=== PATIENT | female | born 1945 | race Caucasian/White ===

== ENCOUNTER 2018-10-31 10:58 | Observation (INO) | payer OTHER ==
[2018-10-31] MEDS ORDERED: SODIUM CHLORIDE 1,000 ML IV STA (11:22)
[2018-10-31] MEDS ORDERED: CEFTRIAXONE 1,000 MG in DEXTROSE 5%-WATER - 50 ML IVPB ONE (12:05)
--- NOTE | 2018-10-31 12:25 | PDOC ---
History of Present Illness <Elisabet Newman - Last Filed: 10/31/18 12:41> - History of Present Illness Initial Comments: 10/31/18 12:19 The patient is a 72-year-old female, with a past medical history of HTN and cardiac stent x1 on ASA/Plavix, sent to the ED by Dr. Romero with rectal bleeding s/p colonoscopy yesterday. Patient had 6 polyps removed and reports having 3 episodes of heavy bleeding this morning w/o clots. Blood was bright red in color. She is also experiencing lower abdominal pain that is worse on the left side, which Dr. Romero believes is due to the cautery. As per Dr. Romero, the patient was orthostatic in the office this morning and stopped her plavix and aspirin 1 week prior to the surgery. The patient denies any fever, chills, nausea, or vomiting. Denies any dizziness , chest pain or shortness of breath. Denies any urinary symptoms. Allergies: NKA Social History: None reported. Surgical History: Colonoscopy <Chandler Tavarez - Last Filed: 10/31/18 16:05> - General Chief Complaint: Pain, Acute Stated Complaint: ABD PAIN, RECTAL BLEEDING Time Seen by Provider: 10/31/18 11:38 Past History <Elisabet Newman - Last Filed: 10/31/18 12:41> - Past Medical History COPD: No HTN: Yes - Suicide/Smoking/Psychosocial Hx Smoking History: Never smoked Have you smoked in the past 12 months: No Information on smoking cessation initiated: No Hx Alcohol Use: No Drug/Substance Use Hx: No <Chandler Tavarez - Last Filed: 10/31/18 16:05> - Past Medical History Allergies/Adverse Reactions: Allergies Allergy/AdvReac Type Severity Reaction Status Date / Time No Known Allergies Allergy Verified 10/31/18 11:11 Review of Systems - Review of Systems Comments:: 10/31/18 12:20 GENERAL/CONSTITUTIONAL: No fever or chills. No weakness. HEAD, EYES, EARS, NOSE AND THROAT: No change in vision. No ear pain or discharge. No sore throat. GASTROINTESTINAL: (+)Abdominal pain. No nausea, vomiting, diarrhea or constipation. GENITOURINARY: (+)Rectal bleeding. No dysuria, frequency, or change in urination. CARDIOVASCULAR: No chest pain or shortness of breath. RESPIRATORY: No cough, wheezing, or hemoptysis. MUSCULOSKELETAL: No joint or muscle swelling or pain. No neck or back pain. SKIN: No rash NEUROLOGIC: No headache, vertigo, loss of consciousness, or change in strength/ sensation. ENDOCRINE: No increased thirst. No abnormal weight change. HEMATOLOGIC/LYMPHATIC: No anemia, easy bleeding, or history of blood clots. ALLERGIC/IMMUNOLOGIC: No hives or skin allergy. <CorbyYomna - Last Filed: 10/31/18 16:05> *Physical Exam - Vital Signs Last Vital Signs Temp Pulse Resp BP Pulse Ox 98.2 F 66 18 96/55 L 99 10/31/18 11:11 10/31/18 12:21 10/31/18 12:21 10/31/18 12:21 10/31/18 12:21 <Elisabet Newman - Last Filed: 10/31/18 12:41> - Vital Signs Last Vital Signs Temp Pulse Resp BP Pulse Ox 98.2 F 80 20 91/43 L 96 10/31/18 11:11 10/31/18 11:11 10/31/18 11:11 10/31/18 11:11 10/31/18 11:11 - Physical Exam Comments: 10/31/18 12:20 GENERAL: Awake, alert, and fully oriented, in no acute distress. Pale in appearance EYES: PERRLA, EOMI, sclera anicteric, conjunctiva clear ENT: Hearing grossly normal, nares patent, oropharynx clear without exudates. Moist mucosa NECK: Normal ROM, supple, no lymphadenopathy, JVD, or masses LUNGS: Breath sounds equal, clear to auscultation bilaterally. No wheezes, and no crackles HEART: Regular rate and rhythm, normal S1 and S2, no murmurs, rubs or gallops ABDOMEN: Soft, nontender, normoactive bowel sounds. No guarding, no rebound. No masses : +BRB in rectal vault, no active bleeding, no ext hemorrhoids EXTREMITIES: Normal range of motion, no edema. No cords, erythema, or tenderness NEUROLOGICAL: Normal speech, cranial nerves intact, equal strength and sensation b/l SKIN: Warm, Dry, normal turgor, no rashes or lesions noted. <NassefYomna - Last Filed: 10/31/18 16:05> Moderate Sedation - Procedure Monitoring Vital Signs: Procedure Monitoring Vital Signs Temperature 98.2 F 10/31/18 11:11 Pulse Rate 66 10/31/18 12:21 Respiratory Rate 18 10/31/18 12:21 Blood Pressure 96/55 L 10/31/18 12:21 O2 Sat by Pulse Oximetry (%) 99 10/31/18 12:21 <Elisabet Newman - Last Filed: 10/31/18 12:41> - Procedure Monitoring Vital Signs: Procedure Monitoring Vital Signs Temperature 98.2 F 10/31/18 11:11 Pulse Rate 80 10/31/18 11:11 Respiratory Rate 20 10/31/18 11:11 Blood Pressure 91/43 L 10/31/18 11:11 O2 Sat by Pulse Oximetry (%) 96 10/31/18 11:11 <Chandler Tavarez - Last Filed: 10/31/18 16:05> Heart Score/ECG Review #1 10/31/18 12:36 Twelve-lead EKG was performed and reviewed by me. Normal sinus rhythm, rate 62. Normal axis. No ST elevations. T wave inversions in V2 to V4. No previous EKGs to compare. <Chandler Tavarez - Last Filed: 10/31/18 16:05> ED Treatment Course - LABORATORY CBC & Chemistry Diagram: 10/31/18 11:55 10/31/18 11:55 - ADDITIONAL ORDERS Additional order review: Laboratory Results 10/31/18 11:55 Crossmatch See Detail 10/31/18 11:55 RBC 3.68 MCV 95.8 MCHC 35.4 RDW 12.4 MPV 8.0 Neutrophils % 66.5 Lymphocytes % 23.5 Monocytes % 6.3 Eosinophils % 3.1 Basophils % 0.6 - RADIOLOGY Radiology Studies Ordered: 10/31/18 12:41 Chest X-Ray was reviewed by Dr. Tavarez and over-read by Radiology. Impression: A single AP view the chest reveals a weak inspiration with prominent mediastinum with sclerotic knob. An acute chest process is not seen. The bones and soft tissues are intact. <Elisabet Newman - Last Filed: 10/31/18 12:41> - LABORATORY CBC & Chemistry Diagram: 10/31/18 11:55 02/06/19 11:55 - RADIOLOGY Radiology Studies Ordered: Category Date Time Status CHEST X-RAY PORTABLE* [RAD] Stat Radiology 10/31/18 11:44 Completed <Chandler Tavarez - Last Filed: 10/31/18 16:05> Medical Decision Making - Medical Decision Making 10/31/18 12:37 72yo F with hx HTN, CAD s/p stent 6 years ago presents to the ED with BRBPR after 6 polyps removed yesterday. Vitals significant with hypotension to 90s/ 40s. Exam with pale appearing pt, mild LLQ abd pain, and BRB in rectal vault. Concern for post colonsocopy bleeding, will plan for blood transfusion given reported blood loss, and hypotension. Dr. Romero also requests ceftriaxone/ flagyl in case of perf and CTAP w/o IV or PO contrast to r/o pneumoperitoneum. Once vitals more stable, will order imaging. Anticipate admission. 10/31/18 16:01 Labs wnl CTAP with no pneumoperitoneum, or acute findings BP to 110/64 at this time Case discussed with Dr. Corrales, pt admitted for further mgmt Rpt cbc pending Case discussed in detail with admitting physician including history, physical exam and ancillary studies. Admitting physician has assumed care for the patient, will follow all pending diagnostics and will complete the evaluation and treatment. 10/31/18 16:[address] Romero of the above, agrees with plan to transfuse and admit. <Chandler Tavarez - Last Filed: 10/31/18 16:05> *DC/Admit/Observation/Transfer - Attestations Scribe Attestion: 10/31/18 12:41 Documentation prepared by Elisabet Newman, acting as medical delivery driver for Chandler Tavarez MD. <Elisabet Newman - Last Filed: 10/31/18 12:41> - Discharge Dispostion Decision to Admit order: Yes - Attestations Physician Attestion: 10/31/18 16:03 I, Dr. Chandler Tavarez MD, attest that this document has been prepared under my direction and personally reviewed by me in its entirety. I further attest, that it accurately reflects all work, treatment, procedures and medical decision -making performed by me. <Chandler Tavarez - Last Filed: 10/31/18 16:05> Diagnosis at time of Disposition: BRBPR (bright red blood per rectum), Abdominal pain, Hypotension - Discharge Dispostion Condition at time of disposition: Stable
[2018-10-31] MEDS ORDERED: CEFTRIAXONE 1 GM/50 ML BAG ONE (12:26)
[2018-10-31 12:29] LABS: BASO % 0.6 % (0-2.0); EOS % 3.1 % (0-4.5); HEMATOCRIT 35.2 % (32.4-45.2); HEMOGLOBIN 12.5 GM/dL (10.7-15.3); LYMPH % 23.5 % (8-40); MCH 33.9 pg (25.7-33.7); MCHC 35.4 g/dl (32.0-36.0); MEAN CELL VOLUME 95.8 fl (80-96); MONO % 6.3 % (3.8-10.2); NEUT % 66.5 % (42.8-82.8); PLATELET COUNT 238 K/MM3 (134-434); RBC 3.68 M/mm3 (3.60-5.2); RDW 12.4 % (11.6-15.6); WHITE BLOOD COUNT 7.2 K/mm3 (4.0-10.0)
[2018-10-31 12:41] LABS: INR 0.97 (0.83-1.09); PROTHROMBIN TIME (PATIENT) 11.5 SEC (9.7-13.0)
[2018-10-31 12:50] LABS: ALK PHOS 68 U/L (45-117); ANION GAP 7 MMOL/L (8-16); BILIRUBIN,TOTAL 0.5 mg/dL (0.2-1); BLOOD UREA NITROGEN 24 mg/dL (7-18); CALCIUM 8.7 mg/dL (8.5-10.1); CHLORIDE 96 mmol/L (98-107); CO2 29 mmol/L (21-32); CREATININE 1.3 mg/dL (0.55-1.3); GLUCOSE,RANDOM 91 mg/dL (74-106); SGOT/AST 19 U/L (15-37); SGPT/ALT 26 U/L (13-61); SODIUM 132 mmol/L (136-145); TOT PROT 7.4 g/dl (6.4-8.2)
[2018-10-31 17:34] LABS: URINE APPEARANCE CLEAR; URINE BILIRUBIN NEGATIVE (<2.0 mg/dL); URINE COLOR LTYELLOW; URINE GLUCOSE (UA) NEGATIVE (NEGATIVE); URINE KETONE NEGATIVE (NEGATIVE); URINE LEUK ESTERASE NEGATIVE (NEGATIVE); URINE NITRITE NEGATIVE (NEGATIVE); URINE PROTEIN NEGATIVE (NEGATIVE); URINE UROBILINOGEN NEGATIVE mg/dL (0.2-1.0)
[2018-10-31 17:44] LABS: EPI CELLS RARE /HPF (FEW); URINE HYALINE CAST 1 /lpf; URINE MUCUS RARE
[2018-10-31 20:17] VITALS: BMI 27.3
--- NOTE | 2018-10-31 20:45 | HP ---
Admitting History and Physical - Primary Care Physician PCP: Gaurav Corrales - Admission History of Present Illness: 72-year-old female, with a past medical history of HTN and cardiac stent x1 on ASA/Plavix, sent to the ED by Dr. Gonzalez with rectal bleeding s/p colonoscopy yesterday. Patient had 6 polyps removed and reports having 3 episodes of heavy bleeding this morning w/o clots. Blood was bright red in color. She is also experiencing lower abdominal pain that is worse on the left side, which Dr. Gonzalez believes is due to the cautery. As per Dr. Gonzalez, the patient was orthostatic in the office this morning and stopped her plavix and aspirin 1 week prior to the surgery. - Past Medical History Cardiovascular: Yes: HTN ...: No - Smoking History Smoking history: Never smoked Have you smoked in the past 12 months: No - Alcohol/Substance Use Hx Alcohol Use: No Home Medications - Allergies Allergies/Adverse Reactions: Allergies Allergy/AdvReac Type Severity Reaction Status Date / Time No Known Allergies Allergy Verified 10/31/18 11:11 - Home Medications Home Medications: Ambulatory Orders ASA - 81 mg PO DAILY 10/31/18 Physical Examination Vital Signs: Vital Signs Temperature 97.9 F 10/31/18 20:12 Pulse Rate 62 10/31/18 20:12 Respiratory Rate 20 10/31/18 20:12 Blood Pressure 124/62 10/31/18 20:12 O2 Sat by Pulse Oximetry (%) 99 10/31/18 18:48 Constitutional: Yes: No Distress HENT: Yes: Atraumatic Neck: Yes: Supple Cardiovascular: Yes: Regular Rate and Rhythm Respiratory: Yes: CTA Bilaterally Gastrointestinal: Yes: Normal Bowel Sounds Extremities: Yes: WNL Edema: No Neurological: Yes: Alert, Oriented Labs: CBC, BMP 10/31/18 11:55 10/31/18 11:55 Imaging - Results Cat Scan: Report Reviewed Problem List - Problems (1) Abdominal pain Assessment/Plan: on clear liquid diet Code(s): R10.9 - UNSPECIFIED ABDOMINAL PAIN (2) BRBPR (bright red blood per rectum) Assessment/Plan: no more blood per rectum during the day uptil now dr gonzalez to see patient Code(s): K62.5 - HEMORRHAGE OF ANUS AND RECTUM Assessment/Plan Laboratory Tests 10/31/18 10/31/18 10/31/18 11:55 11:55 11:55 WBC 7.2 RBC 3.68 Hgb 12.5 Hct 35.2 MCV 95.8 MCH 33.9 H MCHC 35.4 RDW 12.4 Plt Count 238 MPV 8.0 Absolute Neuts (auto) 4.8 Neutrophils % 66.5 Lymphocytes % 23.5 Monocytes % 6.3 Eosinophils % 3.1 Basophils % 0.6 Nucleated RBC % 0 PT with INR 11.50 INR 0.97 PTT (Actin FS) 28.0 Sodium 132 L Potassium 4.0 Chloride 96 L Carbon Dioxide 29 Anion Gap 7 L BUN 24 H Creatinine 1.3 Creat Clearance w eGFR 40.26 Random Glucose 91 Calcium 8.7 Total Bilirubin 0.5 AST 19 ALT 26 Alkaline Phosphatase 68 Total Protein 7.4 Albumin 4.0 Urine Color Urine Appearance Urine pH Ur Specific [place] Urine Protein Urine Glucose (UA) Urine Ketones Urine Blood Urine Nitrite Urine Bilirubin Urine Urobilinogen Ur Leukocyte Esterase Urine WBC (Auto) Urine RBC (Auto) Ur Epithelial Cells Hyaline Casts Urine Mucus Stool Occult Blood Blood Type Antibody Screen Crossmatch 10/31/18 10/31/18 10/31/18 11:55 12:28 14:51 WBC RBC Hgb Hct MCV MCH MCHC RDW Plt Count MPV Absolute Neuts (auto) Neutrophils % Lymphocytes % Monocytes % Eosinophils % Basophils % Nucleated RBC % PT with INR INR PTT (Actin FS) Sodium Potassium Chloride Carbon Dioxide Anion Gap BUN Creatinine Creat Clearance w eGFR Random Glucose Calcium Total Bilirubin AST ALT Alkaline Phosphatase Total Protein Albumin Urine Color Urine Appearance Urine pH Ur Specific [place] Urine Protein Urine Glucose (UA) Urine Ketones Urine Blood Urine Nitrite Urine Bilirubin Urine Urobilinogen Ur Leukocyte Esterase Urine WBC (Auto) Urine RBC (Auto) Ur Epithelial Cells Hyaline Casts Urine Mucus Stool Occult Blood Positive Blood Type O POSITIVE O POSITIVE Antibody Screen Negative Negative Crossmatch See Detail 10/31/18 16:53 WBC RBC Hgb Hct MCV MCH MCHC RDW Plt Count MPV Absolute Neuts (auto) Neutrophils % Lymphocytes % Monocytes % Eosinophils % Basophils % Nucleated RBC % PT with INR INR PTT (Actin FS) Sodium Potassium Chloride Carbon Dioxide Anion Gap BUN Creatinine Creat Clearance w eGFR Random Glucose Calcium Total Bilirubin AST ALT Alkaline Phosphatase Total Protein Albumin Urine Color Ltyellow Urine Appearance Clear Urine pH 6.0 Ur Specific [place] 1.008 L Urine Protein Negative Urine Glucose (UA) Negative Urine Ketones Negative Urine Blood 1+ H Urine Nitrite Negative Urine Bilirubin Negative Urine Urobilinogen Negative Ur Leukocyte Esterase Negative Urine WBC (Auto) 1 Urine RBC (Auto) None Ur Epithelial Cells Rare Hyaline Casts 1 Urine Mucus Rare Stool Occult Blood Blood Type Antibody Screen Crossmatch Active Medications Generic Name Dose Route Start Last Admin Trade Name Freq PRN Reason Stop Dose Admin Acetaminophen 650 mg 10/31/18 20:42 Tylenol - PO Q6H PRN FEVER
[2018-10-31 20:52] LABS: HEMATOCRIT 35.4 % (32.4-45.2); HEMOGLOBIN 12.5 GM/dL (10.7-15.3); MCH 33.6 pg (25.7-33.7); MCHC 35.4 g/dl (32.0-36.0); MEAN CELL VOLUME 95.1 fl (80-96); MEAN PLT VOLUME 8.2 fl (7.5-11.1); PLATELET COUNT 205 K/MM3 (134-434); RBC 3.73 M/mm3 (3.60-5.2); RDW 12.9 % (11.6-15.6); WHITE BLOOD COUNT 6.4 K/mm3 (4.0-10.0)
[2018-10-31] MEDS: ACETAMINOPHEN 325 MG TABLET (FP) PO PRN (21:23)
[2018-10-31 21:35] LABS: LIPASE 661 U/L (73-393)
[2018-11-01] MEDS ORDERED: SODIUM CHLORIDE 1,000 ML IV SCH (08:15)
[2018-11-01 09:03] LABS: EOS % 6.8 % (0-4.5); HEMATOCRIT 36.1 % (32.4-45.2); HEMOGLOBIN 12.9 GM/dL (10.7-15.3); LYMPH % 23.5 % (8-40); MCH 33.2 pg (25.7-33.7); MCHC 35.6 g/dl (32.0-36.0); MEAN PLT VOLUME 8.2 fl (7.5-11.1); MONO % 8.3 % (3.8-10.2); NEUT % 60.4 % (42.8-82.8); PLATELET COUNT 213 K/MM3 (134-434); RBC 3.88 M/mm3 (3.60-5.2); RDW 13.3 % (11.6-15.6); WHITE BLOOD COUNT 4.6 K/mm3 (4.0-10.0)
[2018-11-01] MEDS ORDERED: cefTRIAXone SODIUM 1 GM VIAL ONE (09:07)
[2018-11-01] MEDS ORDERED: DEXTROSE 5%-WATER - 50 ML IVPB ONE (09:07)
[2018-11-01 09:27] LABS: ALBUMIN 3.7 g/dl (3.4-5.0); ALK PHOS 57 U/L (45-117); ANION GAP 8 MMOL/L (8-16); BILIRUBIN,TOTAL 0.5 mg/dL (0.2-1); BLOOD UREA NITROGEN 14 mg/dL (7-18); CALCIUM 8.6 mg/dL (8.5-10.1); CHLORIDE 101 mmol/L (98-107); CO2 28 mmol/L (21-32); CREATININE 0.9 mg/dL (0.55-1.3); GLUCOSE,RANDOM 91 mg/dL (74-106); POTASSIUM 3.9 mmol/L (3.5-5.1); SGOT/AST 19 U/L (15-37); SGPT/ALT 24 U/L (13-61); SODIUM 137 mmol/L (136-145); TOT PROT 6.8 g/dl (6.4-8.2)
[2018-11-01] MEDS ORDERED: CEFTRIAXONE 1 GM in DEXTROSE 5%-WATER - 50 ML IVPB SCH (10:00)
--- NOTE | 2018-11-01 10:00 | CON.GI ---
Consult Consult Specialty:: GI Reason for Consultation:: post colonoscopy rectal bleeding - History of Present Illness History of Present Illness: 72 y/o F had a colonoscopy with multiple polypectomies 2 days ago. She developed multiple episodes of rectal bleeding overnight associated with weakness and diffuse abdominal pain. She denies fever,nausea and vomiting. SHe was asked to follow in the office. In the office she had bloody stool on rectal examination associated with orthostatic changes. She was transported to ED by ambulance. In the ED , ct was done which was negative for perforation. SHe was given 1 unit of blood and received antibiotics and IV hydration. Overnight no further bleeding was noted but continued to have abdominal pain - Past Medical History Cardio/Vascular: Yes: HTN ...: No - Alcohol/Substance Use Hx Alcohol Use: No - Smoking History Smoking history: Never smoked Have you smoked in the past 12 months: No Home Medications - Allergies Allergies/Adverse Reactions: Allergies Allergy/AdvReac Type Severity Reaction Status Date / Time No Known Allergies Allergy Verified 10/31/18 11:11 - Home Medications Home Medications: Ambulatory Orders ASA - 81 mg PO DAILY 10/31/18 Levofloxacin [Levaquin] 500 mg PO DAILY #5 tablet 11/01/18 metroNIDAZOLE [Flagyl -] 500 mg PO DAILY #7 tablet 11/01/18 Physical Exam-GI Vital Signs: Vital Signs Temperature 98.6 F 11/01/18 06:49 Pulse Rate 63 11/01/18 06:49 Respiratory Rate 20 11/01/18 06:49 Blood Pressure 115/66 11/01/18 06:49 O2 Sat by Pulse Oximetry (%) 99 11/01/18 04:41 Constitutional: Yes: Well Nourished Eyes: Yes: Conjunctiva Clear HENT: Yes: Atraumatic Neck: Yes: Supple Cardiovascular: Yes: Regular Rate and Rhythm Respiratory: Yes: CTA Bilaterally ...Palpate: Yes: Soft, Tenderness (--mild). No: Firm/Rigid, Guarding, Hepatomegaly, Mass, Pulsatile Mass, Splenomegaly, Tenderness, Epigastium Labs: CBC, BMP 11/01/18 07:30 11/01/18 07:30 INR, PTT INR 0.97 (0.83-1.09) 10/31/18 11:55 Problem List - Problems (1) Post-polypectomy bleeding Assessment/Plan: now stable R> advance diet Code(s): [id number] - (2) Abdominal pain Assessment/Plan: secondary to post polypectomy electocautery syndrome R> continue IV hydration continue IV Ceftriaxone and Flagyl may switch to Levaquin and flagyl 2 weeks po for 1 weeks made aware to follow-up in 1` week Code(s): R10.9 - UNSPECIFIED ABDOMINAL PAIN
[2018-11-01] MEDS: ACETAMINOPHEN 325 MG TABLET (FP) PO PRN (10:12)
[2018-11-01] MEDS: PANTOPRAZOLE 40 MG TABLET (FP) PO SCH (10:12)
--- NOTE | 2018-11-01 17:06 | PN ---
Progress Note, Physician - Current Medication List Current Medications: Active Medications Acetaminophen (Tylenol -) 650 mg PO Q6H PRN PRN Reason: FEVER Last Admin: 11/01/18 10:12 Dose: 650 mg Ceftriaxone Sodium 1 gm/ (Dextrose) 50 mls @ 100 mls/hr IVPB DAILY [facility]; Protocol Stop: 11/07/18 10:00 Last Admin: 11/01/18 09:34 Dose: 100 mls/hr Metronidazole (Flagyl 500mg Premixed Ivpb -) 500 mg in 100 mls @ 100 mls/hr IVPB Q8H-IV ALYX Stop: 11/07/18 10:00 Last Admin: 11/01/18 09:36 Dose: 100 mls/hr Sodium Chloride (Normal Saline -) 1,000 mls @ 80 mls/hr IV ASDIR ALYX Last Admin: 11/01/18 09:34 Dose: 80 mls/hr Pantoprazole Sodium (Protonix -) 40 mg PO DAILY ALYX Last Admin: 11/01/18 10:12 Dose: 40 mg - Objective Vital Signs: Vital Signs Temperature 97.7 F 11/01/18 14:28 Pulse Rate 73 11/01/18 14:28 Respiratory Rate 20 11/01/18 06:49 Blood Pressure 134/80 11/01/18 14:28 O2 Sat by Pulse Oximetry (%) 99 11/01/18 04:41 Constitutional: Yes: No Distress HENT: Yes: Atraumatic Neck: Yes: Supple Cardiovascular: Yes: Regular Rate and Rhythm Respiratory: Yes: CTA Bilaterally Gastrointestinal: Yes: Normal Bowel Sounds Extremities: Yes: WNL Edema: No Neurological: Yes: Alert, Oriented Labs: CBC, BMP 11/01/18 07:30 11/01/18 07:30 INR, PTT INR 0.97 (0.83-1.09) 10/31/18 11:55 Problem List - Problems (1) Abdominal pain Assessment/Plan: resolved tolerating diet Code(s): R10.9 - UNSPECIFIED ABDOMINAL PAIN (2) BRBPR (bright red blood per rectum) Assessment/Plan: resolved Code(s): K62.5 - HEMORRHAGE OF ANUS AND RECTUM
[2018-11-02 07:30] VITALS: BP 105/66; PULSE 70; TEMP 98
[2018-11-02] MEDS: PANTOPRAZOLE 40 MG TABLET (FP) PO SCH (10:12)
--- NOTE | 2018-11-02 11:50 | DS ---
Physical Examination Vital Signs: Vital Signs Temperature 98.0 F 11/02/18 07:28 Pulse Rate 70 11/02/18 07:28 Respiratory Rate 21 H 11/02/18 07:28 Blood Pressure 105/66 11/02/18 07:28 O2 Sat by Pulse Oximetry (%) 98 11/01/18 20:00 Constitutional: Yes: No Distress HENT: Yes: Atraumatic Neck: Yes: Supple Cardiovascular: Yes: Regular Rate and Rhythm Respiratory: Yes: CTA Bilaterally Gastrointestinal: Yes: Normal Bowel Sounds Extremities: Yes: WNL Edema: No Peripheral Pulses WNL: Yes Neurological: Yes: Alert, Oriented Labs: CBC, BMP 11/01/18 07:30 11/01/18 07:30 Discharge Summary Reason For Visit: BRIGHT RED BLOOD PER RECTUM/ABD PAIN Current Active Problems Abdominal pain (Acute) BRBPR (bright red blood per rectum) (Acute) Hypotension (Acute) Post-polypectomy bleeding (Acute) Condition: Stable - Instructions Referrals: Sukhdev Romero MD [Staff Physician] - Disposition: HOME - Home Medications Comprehensive Discharge Medication List: Ambulatory Orders ASA - 81 mg PO DAILY 10/31/18 Levofloxacin [Levaquin] 500 mg PO DAILY #5 tablet 11/01/18 metroNIDAZOLE [Flagyl -] 500 mg PO DAILY #7 tablet 11/01/18 mt home
--- NOTE | 2018-11-02 12:00 | PN ---
Progress Note, Physician History of Present Illness: Patient examined and case discussed with Dr. Romero GI FOLLOW UP NOTE Patient states feeling better and that pain to LLQ has improved. She says she has mild pain to LLQ. States only noticing small stain of brown discharge from rectum. Denies melena, diarrhea, constipation, rectal pain. - Current Medication List Current Medications: Active Medications Acetaminophen (Tylenol -) 650 mg PO Q6H PRN PRN Reason: FEVER Last Admin: 11/01/18 10:12 Dose: 650 mg Levofloxacin (Levaquin -) 500 mg PO DAILY [facility] Stop: 11/09/18 11:00 Last Admin: 11/02/18 10:12 Dose: 500 mg Pantoprazole Sodium (Protonix -) 40 mg PO DAILY [facility] Last Admin: 11/02/18 10:12 Dose: 40 mg - Objective Vital Signs: Vital Signs Temperature 98.0 F 11/02/18 07:28 Pulse Rate 70 11/02/18 07:28 Respiratory Rate 21 H 11/02/18 07:28 Blood Pressure 105/66 11/02/18 07:28 O2 Sat by Pulse Oximetry (%) 98 11/01/18 20:00 Constitutional: Yes: Well Nourished, No Distress, Calm Eyes: Yes: Conjunctiva Clear Cardiovascular: Yes: Regular Rate and Rhythm Respiratory: Yes: Regular, CTA Bilaterally Gastrointestinal: Yes: Normal Bowel Sounds, Soft, Tenderness (slight tenderness LLQ). No: WNL, Abdomen, Obese, Ascites, Distention, Hematemesis, Hemorrhoids, Hepatomegaly, Hernia, Hyperactive Bowel Sounds, Hypoactive Bowel Sounds, Melena , Palpable Mass, Pulsatile Mass, Rectal Bleeding, Splenomegaly, Tenderness, Epigastrium, Tenderness, Rebound, Vomiting, Other Neurological: Yes: Alert, Oriented Psychiatric: Yes: Alert, Oriented Labs: CBC, BMP 11/01/18 07:30 11/01/18 07:30 INR, PTT INR 0.97 (0.83-1.09) 10/31/18 11:55 Problem List - Problems (1) Abdominal pain Assessment/Plan: -as per patient pain has improved -will follow up for further monitoring in GI office, to follow up in 1 week Code(s): R10.9 - UNSPECIFIED ABDOMINAL PAIN (2) Post-polypectomy bleeding Assessment/Plan: -will start Levaquin 500mg daily x 7 days -will follow up for further monitoring as outpatient, will follow up in 1 week Code(s): [id number] -
== END 2018-11-02 13:10 | disposition home or self-care (01) ==
LOC: JER 10:58 → INTOOBSV 16:03 → JERBED 16:03 → J6S 19:17
PROVIDERS: ADMIT Internal Medicine; ATTEND Internal Medicine
PROC: 30233N1 Transfusion of Nonautologous Red Blood Cells into Peripheral Vein, Percutaneous Approach (ICD-10-PCS; principal; 2018-10-31)
PROC: 3E03329 Introduction of Other Anti-infective into Peripheral Vein, Percutaneous Approach (ICD-10-PCS; 2018-10-31)
PROC: 3E0337Z Introduction of Electrolytic and Water Balance Substance into Peripheral Vein, Percutaneous Approach (ICD-10-PCS; 2018-10-31)
DX: K91.840 Postprocedural hemorrhage of a digestive system organ or structure following a digestive system procedure (principal); K62.5 Hemorrhage of anus and rectum; R10.9 Unspecified abdominal pain; I95.9 Hypotension, unspecified; I10 Essential (primary) hypertension; I25.10 Atherosclerotic heart disease of native coronary artery without angina pectoris
CPT/HCPCS: 36415; 36430; 71045-TC-FY; 74176-TC; 80053; 81003; 81015; 82272; 83690; 84484; 85025; 85027; 85610; 85730; 86850; 86900; 86901; 86922; 87040; 87086; 93005; 93010; 96361; 96365; 96368; 96375; 99284-25; G0378; J7030; P9038; P9058

== ENCOUNTER 2020-11-30 05:55 | Day surgery (SDC) | payer OTHER ==
[2020-11-30] MEDS ORDERED: TETRACAINE 0.5% OPHTH SOLN 2 ML BOTTLE ONE ×2 (06:30→07:08)
[2020-11-30] MEDS: TROPICAMIDE 1% OPHTH SOLN 15 ML BOTTLE ONE ×3 (07:00→07:10)
[2020-11-30] MEDS: CIPROFLOXACIN HCL 0.3% OPHTH 2.5ML BOTTLE ONE ×3 (07:00→07:10)
[2020-11-30] MEDS: CYCLOPENTOLATE 2% OPHTH SOLN 2 ML BOTTLE ONE ×3 (07:00→07:10)
[2020-11-30] MEDS: PHENYLEPHRINE 2.5% OPHTH SOLN 15 ML BOTTLE ONE ×3 (07:00→07:10)
[2020-11-30 07:07] VITALS: BMI 27.4
[2020-11-30] MEDS ORDERED: EPINEPHrine/PF 1 MG/1 ML (1:1,000) AMPULE ONE (07:07)
[2020-11-30] MEDS ORDERED: BSS (NA/CA/MG/K) BALANCED SALT SOLUTION OPHTH SOLN 15 ML BOTTLE ONE (07:08)
[2020-11-30] MEDS ORDERED: POVIDONE-IODINE 5% OPHTHALMIC PREP 30 ML SOLUTION ONE (07:08)
[2020-11-30] MEDS ORDERED: EPI-SHUGARCAINE (EPINEPHRINE 0.025% & LIDOCAINE-PF 0.75%) 4ML ONE (07:08)
[2020-11-30] MEDS ORDERED: ACETYLCHOLINE 1:100 INTRA-OCUL 20 MG/2 ML KIT ONE (07:09)
[2020-11-30] MEDS ORDERED: MIDAZOLAM HCL 2 MG/2 ML SINGLE DOSE VIAL ONE (07:32)
[2020-11-30] MEDS ORDERED: TROPICAMIDE 1% OPHTH SOLN 15 ML BOTTLE OD SCH (08:45)
[2020-11-30] MEDS ORDERED: CYCLOPENTOLATE 2% OPHTH SOLN 2 ML BOTTLE OD SCH (08:45)
[2020-11-30] MEDS ORDERED: PHENYLEPHRINE 2.5% OPHTH SOLN 15 ML BOTTLE OD SCH (09:00)
[2020-11-30] MEDS ORDERED: CIPROFLOXACIN HCL 0.3% OPHTH 2.5ML BOTTLE OD SCH (09:00)
[2020-11-30 09:48] VITALS: BP 109/60; PULSE 56; TEMP 97.9
[2020-11-30] MEDS ORDERED: TETRACAINE 0.5% OPHTH SOLN 2 ML BOTTLE OD ONE (10:00)
== END 2020-11-30 09:48 | disposition home or self-care (01) ==
LOC: FASU 05:55
PROVIDERS: ATTEND Ophthalmology
PROC: 08RJ3JZ Replacement of Right Lens with Synthetic Substitute, Percutaneous Approach (ICD-10-PCS; principal; 2020-11-30 07:41)
DX: H25.11 Age-related nuclear cataract, right eye (principal)

== ENCOUNTER 2021-01-04 06:07 | Day surgery (SDC) | payer OTHER ==
[2020-12-29 18:25] VITALS: BMI 27.4
[2021-01-04] MEDS: PHENYLEPHRINE 2.5% OPHTH SOLN 15 ML BOTTLE ONE ×3 (06:45→06:55)
[2021-01-04] MEDS: CIPROFLOXACIN 0.3% EYE DROPS 5 ML BOTTLE ONE ×3 (06:45→06:55)
[2021-01-04] MEDS: TROPICAMIDE 1% OPHTH SOLN 15 ML BOTTLE ONE ×3 (06:45→06:55)
[2021-01-04] MEDS: CYCLOPENTOLATE 2% OPHTH SOLN 2 ML BOTTLE ONE ×3 (06:45→06:55)
[2021-01-04] MEDS ORDERED: POVIDONE-IODINE 5% OPHTHALMIC PREP 30 ML SOLUTION ONE (08:03)
[2021-01-04] MEDS ORDERED: CARBACHOL 0.01% INTRA-OCULAR 1.5 ML VIAL ONE (08:03)
[2021-01-04] MEDS ORDERED: TETRACAINE 0.5% OPHTH SOLN 2 ML BOTTLE ONE (08:03)
[2021-01-04] MEDS ORDERED: EPI-SHUGARCAINE (EPINEPHRINE 0.025% & LIDOCAINE-PF 0.75%) 4ML ONE (08:03)
[2021-01-04] MEDS ORDERED: MIDAZOLAM HCL 2 MG/2 ML SINGLE DOSE VIAL ONE (08:16)
[2021-01-04 09:29] VITALS: BP 135/65; PULSE 61; TEMP 98.2
== END 2021-01-04 09:43 | disposition home or self-care (01) ==
LOC: FASU 06:07
PROVIDERS: ATTEND Ophthalmology
PROC: 08RK3JZ Replacement of Left Lens with Synthetic Substitute, Percutaneous Approach (ICD-10-PCS; principal; 2021-01-04 08:22)
DX: H25.12 Age-related nuclear cataract, left eye (principal)